=== PATIENT | female | born 1975 | race Caucasian/White ===

== ENCOUNTER 2017-02-16 18:20 | Emergency (ER) | payer OTHER ==
[2017-02-16 19:12] LABS: RED BLOOD COUNT 4.34 M/UL (4.00-5.10); WHITE BLOOD COUNT 13.5 K/UL (4.5-11.0)
[2017-02-16 19:13] LABS: HEMOGLOBIN 12.5 gm/dl (12.3-15.3)
[2017-02-16 19:44] LABS: BUN/CREATININE RATIO 19 (0-10)
== END 2017-02-16 22:36 | disposition home or self-care (01) ==
LOC: ER1 18:20
PROVIDERS: Preventive Medicine Occupational Medicine
DX: R09.1 Pleurisy (principal); R11.0 Nausea; Z87.891 Personal history of nicotine dependence
CPT/HCPCS: 36415; 36600; 71010; 80053; 82150; 82550; 82553; 82803; 83690; 83874; 84484; 85025; 85379; 87040; 93005; 96361; 96374; 96375; 99285; J1885; J2550; J2930; J7030; J7050; Q9963

== ENCOUNTER → 2021-08-31 | Outpatient (CLI) | payer BC ==
[~2021-08-31] MED LIST: KEFLEX CAP 500500 MG PO; PERCOCET 5/325 T1 EA PO; PREDNISONE 50 M50 MG PO; SULFAMETHOXAZO1 EACH PO; VENTOLIN HFA 66.7 GM INH
== END ==
LOC: US 08:30
DX: R19.00 Intra-abdominal and pelvic swelling, mass and lump, unspecified site (principal); R06.09 Other forms of dyspnea; N27.0 Small kidney, unilateral
CPT/HCPCS: ECHO; 76700; 93306

== ENCOUNTER 2021-09-17 12:03 | Emergency (ER) | payer BC ==
[2021-09-17] MEDS ORDERED: BACTRIM DS TAB1 EACH PO (13:43)
[2021-09-17] MEDS ORDERED: DIFLUCAN150 MG PO (13:43)
== END 2021-09-17 13:58 | disposition home or self-care (01) ==
LOC: ER1 12:03
DX: L02.212 Cutaneous abscess of back [any part, except buttock and flank] (principal); F17.210 Nicotine dependence, cigarettes, uncomplicated
CPT/HCPCS: 10060; 87070; 87205; 99283